=== PATIENT | female | born 1970 ===

== ENCOUNTER 2018-12-03 10:39 | Outpatient (CLI) | payer MEDICARE, MEDICAID | END 2018-12-03 10:40 | disposition home or self-care (01) | LOC: C.DIABED 10:39 | DX: Z71.3 Dietary counseling and surveillance (principal) ==

== ENCOUNTER 2018-12-17 10:53 | Outpatient (CLI) | payer MEDICARE, MEDICAID | END 2018-12-17 10:54 | disposition home or self-care (01) | LOC: C.DIABED 10:53 ==